=== PATIENT | male | born 2000 | race Caucasian/White ===

== ENCOUNTER 2022-09-18 16:45 | Inpatient (IN) | payer MEDICAID, OTHER ==
--- NOTE | 2022-09-18 20:39 | ED ---
General Adult HPI - General Chief complaint: Psychiatric Symptoms Stated complaint: Mental Health Time Seen by Provider: 09/18/22 20:12 Source: patient, family, RN notes reviewed Mode of arrival: ambulatory Limitations: no limitations - History of Present Illness Initial comments: 22-year-old male presents emergency Department with chief complaint of hearing voices that are not present. He states that this has been going on for around 6 months. He reports that he uses families that are criticizing him. He states that he has never been evaluated for this. He reports associated suicidal ideation that has been going on for the past 1-2 years. He denies intent or plan. Denies HI. He denies prior hospitalization for his mental health. He takes no daily medications. Denies fever, chills, chest pain, shortness of breath, urinary frequency, dysuria. Admits to marijuana use and occasional LSD use with the last time being about a month ago. - Related Data Home Medications Medication Instructions Recorded Confirmed No Known Home Medications 09/18/22 09/18/22 Allergies Allergy/AdvReac Type Severity Reaction Status Date / Time amoxicillin [From Amoxil] Allergy Rash/Hives Verified 09/18/22 20:32 Review of Systems ROS Statement: Those systems with pertinent positive or pertinent negative responses have been documented in the HPI. ROS Other: All systems not noted in ROS Statement are negative. Past Medical History Past Medical History: Asthma Past Surgical History: No Surgical Hx Reported Past Psychological History: Anxiety, Depression, PTSD Smoking Status: Current every day smoker, Vaper Past Alcohol Use History: None Reported Past Drug Use History: Marijuana General Exam Limitations: no limitations General appearance: alert, in no apparent distress, anxious, other (avoidant ) Head exam: Present: atraumatic, normocephalic, normal inspection Eye exam: Present: normal appearance ENT exam: Present: normal exam, mucous membranes moist Neck exam: Present: normal inspection. Absent: tenderness, meningismus, lymphadenopathy Respiratory exam: Present: normal lung sounds bilaterally. Absent: respiratory distress, wheezes, rales, rhonchi, stridor Cardiovascular Exam: Present: regular rate, normal rhythm, normal heart sounds. Absent: systolic murmur, diastolic murmur, rubs, gallop, clicks GI/Abdominal exam: Present: soft, normal bowel sounds. Absent: distended, tenderness, guarding, rebound, rigid Extremities exam: Present: normal inspection, full ROM, normal capillary refill. Absent: tenderness, pedal edema, joint swelling, calf tenderness Back exam: Present: normal inspection Neurological exam: Present: alert, oriented X3 Psychiatric exam: Present: flat affect, suicidal ideation Skin exam: Present: warm, dry, intact, normal color. Absent: rash Course Vital Signs 09/18/22 17:21 Temperature 98 F Pulse Rate 100 Respiratory 20 Rate Blood Pressure 142/85 O2 Sat by Pulse 96 Oximetry Medical Decision Making - Medical Decision Making Was pt. sent in by a medical professional or institution (, PA, HOST HOSTESS, urgent care, hospital, or longterm...) When possible be specific @ -No Did you speak to anyone other than the patient for history (EMS, parent, family, police, friend...)? What history was obtained from this source @ -No Did you review nursing and triage notes (agree or disagree)? Why? @ -I reviewed and agree with nursing and triage notes Were old charts reviewed (outside hosp., previous admission, EMS record, old EKG, old radiological studies, urgent care reports/EKG's, longterm records)? Report findings @ -No old charts were reviewed Differential Diagnosis (chest pain, altered mental status, abdominal pain women, abdominal pain men, vaginal bleeding, weakness, fever, dyspnea, syncope, headache, dizziness, GI bleed, back pain, seizure, CVA, palpatations, mental health, musculoskeletal)? @ -Differential Mental Health Depression, anxiety, bipolar, psychosis, schizophrenia, borderline personality, situational depression, adjustment disorder, behavioral disorder, brain tumor, malingering, substance abuse, encephalopathy, medication reaction, dementia, hypothyroidism, degenerative neurologic disorder, lupus.... This is not meant to be all-inclusive liste EKG interpreted by me (3pts min.). @ -None X-rays interpreted by me (1pt min.). @ -None done CT interpreted by me (1pt min.). @ -None done U/S interpreted by me (1pt. min.). @ -None done What testing was considered but not performed or refused? (CT, X-rays, U/S, labs)? Why? @ -None What meds were considered but not given or refused? Why? @ -None Did you discuss the management of the patient with other professionals (professionals i.e. , PA, HOST HOSTESS, lab, RT, psych nurse, social and political studies professor, scrapper, teacher, aoc operations intelligence officer, clinical case manager)? Give summary @ -No Was smoking cessation discussed for >3mins.? @ -No Was critical care preformed (if so, how long)? @ -No Were there social determinants of health that impacted care today? How? (Homelessness, low income, unemployed, alcoholism, drug addiction, transportation, low edu. Level, literacy, decrease access to med. care, correction, rehab)? @ -No Was there de-escalation of care discussed even if they declined (Discuss DNR or withdrawal of care, Hospice)? DNR status @ -No What co-morbidities impacted this encounter? (DM, HTN, Smoking, COPD, CAD, Cancer, CVA, ARF, Chemo, Hep., AIDS, mental health diagnosis, sleep apnea, morbid obesity)? @ -None Was patient admitted / discharged? Hospital course, mention meds given and route, prescriptions, significant lab abnormalities, going to OR and other pertinent info. @ -Admitted. Patient presented in the emergency department with chief complaint of auditory hallucinations, suicidal ideations. Patient brought himself into the emergency department willingly. Patient reports taking no medications for his mental health. He has never been evaluated for his mental health and never been admitted for this. He denies taking any pain medications. Patient was evaluated by emergency psychiatric services and inpatient admission was recommended. Undiagnosed new problem with uncertain prognosis? @ -No Drug Therapy requiring intensive monitoring for toxicity (Heparin, Nitro, Insulin, Cardizem)? @ -No Were any procedures done? @ -No Diagnosis/symptom? @ -Suicidal ideation Acute, or Chronic, or Acute on Chronic? @ -Acute Uncomplicated (without systemic symptoms) or Complicated (systemic symptoms)? @ -default Side effects of treatment? @ -No Exacerbation, Progression, or Severe Exacerbation? @ -No Poses a threat to life or bodily function? How? (Chest pain, [place], NH, pneumonia, PE, COPD, DKA, ARF, appy, cholecystitis, CVA, Diverticulitis, Homicidal, Suicidal, threat to staff... and all critical care pts) @ -Suicidal - Lab Data Lab Results 09/18/22 09/18/22 Range/Units 21:50 21:50 Urine Opiates Screen Not Detected (NotDetected) Ur Oxycodone Screen Not Detected (NotDetected) Urine Methadone Screen Not Detected (NotDetected) Ur Propoxyphene Screen Not Detected (NotDetected) Ur Barbiturates Screen Not Detected (NotDetected) U Tricyclic Antidepress Not Detected (NotDetected) Ur Phencyclidine Scrn Not Detected (NotDetected) Ur Amphetamines Screen Not Detected (NotDetected) U Methamphetamines Scrn Not Detected (NotDetected) U Benzodiazepines Scrn Not Detected (NotDetected) Urine Cocaine Screen Not Detected (NotDetected) U Marijuana (THC) Screen Detected H (NotDetected) Coronavirus (PCR) Not Detected (Not Detectd) Disposition Clinical Impression: Suicidal ideation, Hallucinations Disposition: ADMITTED IP TO THIS [facility] Condition: Stable Is patient prescribed a controlled substance at d/c from ED?: No Referrals: Nando Squires DO [Primary Care Provider] - 1-2 days
[2022-09-18 22:20] LABS: Amphetamine Screen,Urine Not Detected (NotDetected); Barbiturate Screen,Urine Not Detected (NotDetected); Benzodiazepines Screen,Urine Not Detected (NotDetected); Cocaine Screen,Urine Not Detected (NotDetected); Methadone Screen, Urine Not Detected (NotDetected); Opiate Screen,Urine Not Detected (NotDetected); Oxycodone Screen, Urine Not Detected (NotDetected); Phencyclidine Screen,Urine Not Detected (NotDetected); Tricyclic Antidepressant,Urine Not Detected (NotDetected); Urn Cannabinoid Scrn Detected (NotDetected)
[2022-09-18] MEDS ORDERED: MAGNESIUM HYDROXIDE 2,400 MG/30 ML CUP PO PRN (22:53)
[2022-09-18] MEDS ORDERED: ACETAMINOPHEN TAB 325 MG TAB PO PRN (22:53)
[2022-09-18] MEDS ORDERED: MAG HYDROX/AL HYDROX/SIMETH 30 ML CUP PO PRN (22:53)
[2022-09-18] MEDS ORDERED: hydrOXYzine pamoate 25 MG CAP PO PRN (22:57)
[2022-09-18] MEDS ORDERED: hydrOXYzine HCL 50 MG/ML 1 ML VIAL IM PRN (22:57)
[2022-09-18] MEDS ORDERED: OLANZapine 10 MG VIAL IM PRN (22:57)
[2022-09-18] MEDS ORDERED: OLANZapine 5 MG TAB PO PRN (22:57)
[2022-09-19 05:32] LABS: Appearance,Urine Clear (Clear); Bilirubin,Urine Negative (Negative); Blood,Urine Negative (Negative); Color,Urine Light Yellow; Glucose,Urine (UA) Negative (Negative); Ketones,Urine Negative (Negative); Leukocyte Esterase,Urine Negative (Negative); Nitrite,Urine Negative (Negative); Protein,Urine Negative (Negative); Specific Gravity,Urine 1.019 (1.001-1.035); Urobilinogen,Urine <2.0 mg/dL (<2.0)
[2022-09-19 09:06] LABS: Basophils # (A) 0.1 k/uL (0-0.2); Basophils % (A) 1 %; Eosinophils # (A) 0.1 k/uL (0-0.7); Eosinophils % (A) 2 %; HCT 51.7 % (39.0-53.0); HGB 17.5 gm/dL (13.0-17.5); Lymphocytes # (A) 2.9 k/uL (1.0-4.8); Lymphocytes % (A) 52 %; MCHC 33.8 g/dL (31.0-37.0); MCV 91.6 fL (80.0-100.0); Mean Platelet Volume 8.6; Monocytes # (A) 0.3 k/uL (0-1.0); Monocytes % (A) 5 %; Neutrophils % (A) 37 %; Platelet Count 204 k/uL (150-450); RBC 5.64 m/uL (4.30-5.90); RDW 12.3 % (11.5-15.5); WBC 5.5 k/uL (4.0-11.0)
[2022-09-19] MEDS: NICOTINE 14MG/24HR PATCH TRANSDERM SCH (09:20)
[2022-09-19 09:22] LABS: ALT 25 U/L (4-49); African American GFR (CKD) >90 (>60 ml/min/1.73 sqM); Albumin 5.5 g/dL (3.5-5.0); Anion Gap 15 mmol/L; Blood Urea Nitrogen 11 mg/dL (9-20); Calcium 10.1 mg/dL (8.4-10.2); Carbon Dioxide 21 mmol/L (22-30); Chloride 102 mmol/L (98-107); Glucose 92 mg/dL (74-99); Non-African American GFR(CKD) >90 (>60 ml/min/1.73 sqM); Sodium 138 mmol/L (137-145); Total Bilirubin 1.8 mg/dL (0.2-1.3); Total Protein 8.7 g/dL (6.3-8.2)
[2022-09-19 09:24] LABS: Potassium 4.7 mmol/L (3.5-5.1)
[2022-09-19 09:25] LABS: AST 45 U/L (17-59); Alkaline Phosphatase 65 U/L (38-126)
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
[2022-09-19] MEDS: ZIPRASIDONE 20 MG CAP PO SCH ×2 (10:25→21:22)
--- NOTE | 2022-09-19 10:34 | CT ---
EXAMINATION TYPE: CT brain wo con CT DLP: 995.5 mGycm, Automated exposure control for dose reduction was used. DATE OF EXAM: 09/19/2022 10:26 AM COMPARISON: None. Prior CT Brain from . CLINICAL INDICATION:Male, 22 years old with history of first episode psychosis/hallucinations, First episode psychosis/hallucinations TECHNIQUE: Brain: Multiple axial CT images of the brain were obtained without IV contrast. Coronal and sagittal reformats reviewed. FINDINGS: Brain: Extra-axial spaces: No abnormal extra-axial fluid collections. Incidental hailey cisterna magna. Ventricular system: Within normal limits Cerebral parenchyma: No acute intraparenchymal hemorrhage or mass effect. The leon-white junction is well differentiated. Cerebellum: Unremarkable. Mass effect: No evidence of midline shift. Intracranial vasculature: unremarkable Soft tissues: Normal. Calvarium/osseous structures: No depressed skull fracture. Paranasal sinuses and mastoid air cells: Clear Visualized orbits: Orbital contents are intact. IMPRESSION: No acute intracranial process.
[2022-09-19 12:16] VITALS: BMI 15.3
--- NOTE | 2022-09-19 17:00 | P.MDCNMH ---
History of Present Illness H&P Date: 09/19/22 This is a 22-year-old male who presented to the emergency department reporting hallucinations along with suicidal ideation for mental health evaluation. Patient was voluntarily admitted to [address] [place] [address] psychiatric unit. Labs reviewed and within normal limits. Patient was reporting palpitations in the ER that has resolved and patient also reported feeling slightly anxious when he was in the ER and will obtain EKG. On exam patient denies chest pain or shortness of breath, breath sounds are clear to auscultation and heart rate within normal limits. Patient denies nausea or vomiting and reports the tolerating diet. Patient is up and walking with a steady gait denies any headache, dizziness, lightheadedness. Patient does smoke "a lot" and have offered nicotine patch which GERD has on. Patient does not take any scheduled home medications and reports his primary care provider is Dr. Cassandra Squires with a past medical history of asthma although does not take any medications for this and reports has not seen his primary care provider in quite some time. Patient also reports he lives with his aunt and uncle and has significant stressors in his life that have been causing him to become increasingly anxious and more depressed. Patient reports to having suicidal ideations that have been ongoing over the last couple of years with no attempts and no plan at this time. Review Of Systems: Constitutional: No fever, no chills, no night sweats. No weight change. No weakness, fatigue or lethargy. No daytime sleepiness. EENT: No headache. No blurred vision or double vision, no loss of vision. No loss of Hearing, no ringing in the ears, no dizziness. No nasal drainage or congestion. No epistaxis. No sore throat. Lungs: No shortness of breath, cough, no sputum production. No wheezing. Cardiovascular: No chest pain, no lower extremity edema. No palpitations. No paroxysmal nocturnal dyspnea. No orthopnea. No lightheadedness or dizziness. No syncopal episodes. Abdominal: No abdominal pain. No nausea, vomiting. No diarrhea. No constipation. No bloody or tarry stools.. No loss of appetite. Genitourinary: No dysuria, increased frequency, urgency. No urinary retention. Musculoskeletal: No myalgias. No muscle weakness, no gait dysfunction, no frequent falls. No back pain. No neck pain. Integumentary: No wounds, no lesions. No rash or pruritus. No unusual bruising. No change in hair or nails. Neurologic: No aphasia. No facial droop. No change in mentation. No head injury. No headache. No paralysis. No paresthesia. Psychiatric: No depression. No anxiety. No mood swings. Endocrine: No abnormal blood sugars. No weight change. No excessive sweating or thirst. No cold intolerance. PHYSICAL EXAMINATION: GENERAL: The patient is alert and oriented x4, Well developed, thin built, cachectic appearing, pale HEENT: Pupils are round and equally reacting to light. EOMI. no scleral icterus. No conjunctival pallor. Normocephalic, atraumatic. No pharyngeal erythema. No thyromegaly. CARDIOVASCULAR: S1 and S2 muffled PULMONARY: diminished breath sounds bilaterally with no wheezing or rhonchi noted. ABDOMEN: soft. Nontender on exam. obese. non-distended, normoactive bowel sounds. No palpable organomegaly. MUSCULOSKELETAL: No joint swelling or deformity. EXTREMITIES: No cyanosis, clubbing, or pedal edema. NEUROLOGICAL: Gross neurological examination did not reveal any focal deficits. Diffuse weakness SKIN: No rashes. Assessment: Auditory hallucinations with suicidal ideations with acute psychosis and paranoia History of asthma, not an exacerbation and does not take any medications for this History of anxiety with depression Continued ongoing nicotine dependence, patient reports heavily addicted to nicotine including vaping THC use Severe protein calorie malnutrition with a BMI of 15.4 Full code Plan: patient was voluntarily admitted to the psychiatric unit for further psychiatric evaluation for auditory hallucinations with paranoia and suicidal ideations Patient reports he lives with his aunt and uncle and has had significant PTSD and depression with psychiatric issues for most of his life Encouraged patient to attend group therapy sessions along with complaints of medications and psychiatric evaluations. Patient reports to being heavily addicted to nicotine and smokes along with vapes as well as THC use. Patient admits to LSD and mushrooms and reports was approximately one month ago of last use On exam patient reports no chest pain or shortness of breath. Patient reports he did have an episode of palpitations on admission to the ED and will order EKG Labs reviewed and within normal limits patient reports he follows with Dr. Squires in the outpatient setting although also reports he has not seen her in quite some time thank you kindly for this consultation. The impression and plan of care has been dictated by Rafaela Rome, nurse practitioner as directed. Dr. Michel MD I have performed a history and examination and MDM of this patient, discussed the same with the dictator, and agree with the dictator's assessment and plan as written ,documented as a scribe. Based on total visit time, I have performed more than 50% of the visit. Any additional findings or plans will be noted. Past Medical History Past Medical History: Asthma History of Any Multi-Drug Resistant Organisms: None Reported Past Surgical History: No Surgical Hx Reported Past Psychological History: Anxiety, Depression, PTSD Smoking Status: Current every day smoker, Vaper Past Alcohol Use History: None Reported Past Drug Use History: Marijuana Medications and Allergies Home Medications Medication Instructions Recorded Confirmed Type No Known Home Medications 09/18/22 09/18/22 History Allergies Allergy/AdvReac Type Severity Reaction Status Date / Time amoxicillin [From Amoxil] Allergy Rash/Hives Verified 09/18/22 20:32 Physical Exam Vitals: Vital Signs Temp Pulse Pulse Resp BP BP Pulse Ox 09/18/22 22:31 97.4 F L 66 18 123/87 100 09/18/22 17:21 98 F 100 20 142/85 96 Intake and Output 09/18/22 09/19/22 09/19/22 22:59 06:59 14:59 Other: Weight 55.8 kg Cranial Nerve Examination - Cranial Nerves Cranial Nerve I- Olfactory: Intact Cranial Nerve II- Optic: Intact Cranial Nerve III- Oculomotor: Intact Cranial Nerve IV- Trochlear: Intact Cranial Nerve V- Trigeminal: Intact Cranial Nerve - Abducens: Intact Cranial Nerve VII- Facial: Intact Cranial Nerve VIII- Auditory: Intact Cranial Nerve IX- Glossopharyngeal: Intact Cranial Nerve X- Vagus: Intact Cranial Nerve XI- Accessory: Intact Cranial Nerve XII- Hypoglossal: Intact Results CBC & Chem 7: 09/19/22 08:27 09/19/22 08:27 Labs: Abnormal Lab Results - Last 24 Hours (Table) 09/18/22 Range/Units 21:50 U Marijuana (THC) Screen Detected H (NotDetected) Assessment and Plan Time with Patient: Less than 30
[2022-09-19] MEDS: MELATONIN 3 MG TABLET PO SCH (21:22)
[2022-09-20] MEDS: ZIPRASIDONE 20 MG CAP PO SCH (08:59)
[2022-09-20] MEDS: NICOTINE 14MG/24HR PATCH TRANSDERM SCH (08:59)
--- NOTE | 2022-09-20 10:31 | P.PN ---
Progress Note - Text Progress Note Date: 09/20/22 Interval History: Patient was seen laying in his bed today and was directable and agreeable to s peak with play writer in the office. Patient continues to have poor eye contact, states that he is doing a bit better overall. He claims that the auditory hallucinations have "calmed down a bit". He states that he is still hearing them however they are less negative in nature and less frequent. He states that his paranoia is also improving. He did appear to have a mildly brighter affect today. Claims that his mood and anxiety are also mildly improving. He states that he is able sleep fairly with melatonin at nighttime and wants to remain on the same dose. States that he is not interested in going to many groups at this time. He continues to state that some of the visual hallucinations are still present. he continues to be fairly concrete however appropriate. At this time patient denies any suicidal or homical ideations, intent or plan. He denies any paranoia or delusions. Patient denies any side effects from the medications and has been compliant with meds. Mental Status Exam: General Appearance: Patient appears to be thin, poor eye contact looking at the ground, mildly disheveled appearance, stated age is alert, directable, and attempts to cooperate. Behavior: Patient is seated without any agitated behavior. Looking at the ground, poor eye contact. Speech: Patient's speech is fluent and nonpressured. [place], monotone, improving mildly Mood/Affect: Patient reports their mood is "ok", affect is congruent and constricted. Suicidality/Homicidality: Patient denies having any homicidal ideation intent or plan. Denies any current suicidal ideations intent or plan Perceptions: Patient admits to both AH and , AH are improving Though content/process: not endorsing paranoia, no active delusions, goal oriented. concrete. Memory and concentration: AOX3, grossly intact for the purposes of this session Judgment and insight: poor, improving mildly IMPRESSIONS: Psychosis unspecified, rule out secondary to hallucinogen abuse and cannabis use vs schizophrenia hallucinogen abuse cannabis use disorder nicotine dependence PLAN: -Patient is admitted under voluntary status to [facility] for stabilization of psychiatric symptoms and safety. Patient has signed adult voluntary form and medication consent and is placed in patient's chart. -Medications : increase geodon 40 mg bid for psychosis/hallucinations, melatonin 6 mg qhs for sleep. -CT brain on 09/19 for first episode psychosis - no acute findings or changes -EKG ordered, still pending, need to review qtc interval -vistaril and Zyprexa PRN for agitation/aggression -NRT - nicotine patch -SW on board for discharge planning. Encourage patient to participate in groups to work on coping skills.
[2022-09-20] MEDS: MELATONIN 3 MG TABLET PO SCH (21:17)
[2022-09-20] MEDS: ZIPRASIDONE 40 MG CAP PO SCH (21:17)
[2022-09-21] MEDS: ZIPRASIDONE 40 MG CAP PO SCH (09:33)
[2022-09-21] MEDS: NICOTINE 14MG/24HR PATCH TRANSDERM SCH ×2 (11:18→12:40)
--- NOTE | 2022-09-21 11:54 | P.PN ---
Subjective Progress Note Date: 09/21/22 Principal diagnosis: IMPRESSIONS: Psychosis unspecified, rule out secondary to hallucinogen abuse and cannabis use vs schizophrenia hallucinogen abuse cannabis use disorder nicotine dependence Interval History: I saw the patient pacing in the [place] but when he went to find him he was lying down Patient was seen laying in his bed today and was directable and agreeable to speak with sports book writer in the office. Subjective the patient says that without medication he is constantly hearing voices which are always negative. They read the book he is reading along with him and tell him in stupid to read that book or that his ideas are stupid. He feels watched and controlled. He feels that the medication Geodon is already helping some. He is on 40 mg twice a day but he says it makes him quite sleepy during the day. He says that he lost over 20 pounds in the last few months and realizes that is unhealthy. Mental Status Exam: General Appearance: Patient appears to be thin, poor eye contact looking at the ground, mildly disheveled appearance, stated age is alert, directable, and attempts to cooperate. Behavior: Patient is seated without any agitated behavior. He appears to have much better eye contact and interaction than described in the chart. Speech: Patient's speech is fluent and nonpressured. [place], monotone, Mood/Affect: Patient reports their mood is "ok", affect is congruent and constricted. Suicidality/Homicidality: Patient denies having any homicidal ideation intent or plan. Denies any current suicidal ideations intent or plan Perceptions: Patient admits to both and , AH are improving Though content/process: not endorsing paranoia, no active delusions, goal oriented. concrete. Memory and concentration: AOX3, grossly intact for the purposes of this session Judgment and insight: poor, improving mildly. PLAN: -Patient is admitted under voluntary status to [facility] for stabilization of psychiatric symptoms and safety. Patient has signed adult voluntary form and medication consent and is placed in patient's chart. -Medications : increase geodon 60 mg with supper and 60 mg at bed with 450 jb for psychosis/hallucinations, melatonin 6 mg qhs for sleep. -CT brain on 09/19 for first episode psychosis - no acute findings or changes -EKG ordered, still pending, need to review qtc interval -vistaril and Zyprexa PRN for agitation/aggression -NRT - nicotine patch -SW on board for discharge planning. Encourage patient to participate in groups to work on coping skills. Objective - Vital Signs Vital signs: Vital Signs Temp 98.0 F 09/20/22 10:28 Pulse 127 H 09/20/22 10:28 Resp 100 H 09/20/22 10:28 BP 117/64 09/20/22 10:28 Pulse Ox 100 09/18/22 22:31 FiO2 - Labs CBC & Chem 7: 09/19/22 08:27 09/19/22 08:27
[2022-09-21] MEDS: MELATONIN 3 MG TABLET PO SCH (20:38)
[2022-09-21] MEDS: ZIPRASIDONE 60 MG CAP PO SCH (20:38)
[2022-09-22] MEDS: NICOTINE 14MG/24HR PATCH TRANSDERM SCH (08:34)
--- NOTE | 2022-09-22 09:29 | P.PN ---
Subjective Progress Note Date: 09/22/22 Principal diagnosis: IMPRESSIONS: Psychosis unspecified, rule out secondary to hallucinogen abuse and cannabis use vs schizophrenia hallucinogen abuse cannabis use disorder nicotine dependence Interval History: I saw the patient r in the office. Subjective: The patient said that he tolerated the increase in Geodon. I reminded him that he must have 450 jb of food with second dose for it to absorb. He says that he is eating better and has been going to groups and payin g attention and getting benefit from that Mental Status Exam: General Appearance: Patient appears to be thin, improved eye contact, improve self-care, stated age is alert, directable, and cooperative. Behavior: Patient is seated without any agitated behavior. He has good interaction with me.. Speech: Patient's speech is fluent and nonpressured. [place], and improved prosody Mood/Affect: Patient reports their mood is "ok", affect is congruent and constricted. Suicidality/Homicidality: Patient denies having any homicidal ideation intent or plan. Denies any current suicidal ideations intent or plan Perceptions: Patient admits to both AH and , AH are improving Though content/process: not endorsing paranoia, no active delusions, goal oriented. concrete. Memory and concentration: AOX3, he paid good attention Judgment and insight: poor, improving mildly. PLAN: No change in medication -Patient is admitted under voluntary status to [facility] for stabilization of psychiatric symptoms and safety. Patient has signed adult voluntary form and medication consent and is placed in patient's chart. -Medications : increase geodon 60 mg with supper and 60 mg at bed with 450 jb for psychosis/hallucinations, melatonin 6 mg qhs for sleep. -CT brain on 09/19 for first episode psychosis - no acute findings or changes -EKG ordered, still pending, need to review qtc interval -vistaril and Zyprexa PRN for agitation/aggression -NRT - nicotine patch - on board for discharge planning. Encourage patient to participate in groups to work on coping skills. Objective - Vital Signs Vital signs: Vital Signs Temp 97.4 F L 09/22/22 08:33 Pulse 92 09/22/22 08:33 Resp 16 09/22/22 08:33 BP 144/88 09/22/22 08:33 Pulse Ox 100 09/18/22 22:31 FiO2 - Labs CBC & Chem 7: 09/19/22 08:27 09/19/22 08:27
[2022-09-22] MEDS: ZIPRASIDONE 60 MG CAP PO SCH ×3 (17:59→20:28)
[2022-09-22] MEDS: MELATONIN 3 MG TABLET PO SCH (20:22)
[2022-09-23] MEDS: NICOTINE 14MG/24HR PATCH TRANSDERM SCH (07:38)
--- NOTE | 2022-09-23 13:22 | P.PN ---
Progress Note - Text Progress Note Date: 09/23/22 Interval History: Patient was seen taking part in activity group this afternoon after lunch. He appears to be an [employer] today, mildly improving affect and attention span. He states that the medications have been helping however did state that he had an episode of "feeling paranoid" and also hearing voices last night. He states that he believed that other people are talking about him. He claimed that after that he has been doing fairly well. States that his depression and anxiety but improving. States that he slept fairly with melatonin once remain on the same dose. He has been having good appetite, has been going to groups. He continues to state that some of the visual hallucinations are still present however they are improving and non distressing today. he continues to be fairly concrete however appropriate. At this time patient denies any suicidal or homical ideations, intent or plan. He denies any paranoia or delusions. Patient denies any side effects from the medications and has been compliant with meds. Mental Status Exam: General Appearance: Patient appears to be thin, poor eye contact looking at the ground, improving appearance, stated age is alert, directable, and attempts to cooperate. Behavior: Patient is seated without any agitated behavior. Looking at the ground, improving eye contact. Speech: Patient's speech is fluent and nonpressured. [place], improving mildly Mood/Affect: Patient reports their mood is "good", affect is congruent Suicidality/Homicidality: Patient denies having any homicidal ideation intent or plan. Denies any current suicidal ideations intent or plan Perceptions: Patient admits to both and , AH are improving Though content/process: not endorsing paranoia, no active delusions, goal oriented. concrete. Memory and concentration: AOX3, grossly intact for the purposes of this session Judgment and insight: improving mildly IMPRESSIONS: Psychosis unspecified, rule out secondary to hallucinogen abuse and cannabis use vs schizophrenia hallucinogen abuse cannabis use disorder nicotine dependence PLAN: -Patient is admitted under voluntary status to [facility] for stabilization of psychiatric symptoms and safety. Patient has signed adult voluntary form and medication consent and is placed in patient's chart. -Medications : continue geodon 60 mg bid for psychosis/hallucinations, melatonin 6 mg qhs for sleep. -CT brain on 09/19 for first episode psychosis - no acute findings or changes -EKG reviewed -vistaril and Zyprexa PRN for agitation/aggression -NRT - nicotine patch -SW on board for discharge planning. Encourage patient to participate in groups to work on coping skills. likely discharge in 1-2 days if patients symptoms improve.
[2022-09-23] MEDS: ZIPRASIDONE 60 MG CAP PO SCH ×2 (17:42→20:41)
[2022-09-23] MEDS: MELATONIN 3 MG TABLET PO SCH (20:41)
[2022-09-24 07:07] VITALS: BP 130/77; PULSE 110; RESP 18; TEMP 97.5
[2022-09-24] MEDS: NICOTINE 14MG/24HR PATCH TRANSDERM SCH (08:39)
--- NOTE | 2022-09-24 10:29 | P.DS ---
Providers Date of admission: 09/18/22 22:20 Expected date of discharge: 09/24/22 Attending physician: Wilmer Garcia MD Consults: 09/18/22 22:53 Consult Physician Routine Consulting Provider: [facility] Consult Reason/Comments: H&P Do you want consulting provider notified?: Yes, Notify in am Primary care physician: Nando Squires - Discharge Diagnosis(es) (1) Unspecified psychosis Current Visit: Yes Status: Acute Priority: High (2) Hallucinogen abuse Current Visit: Yes Status: Acute Priority: High (3) Cannabis use disorder Current Visit: Yes Status: Acute Priority: Medium (4) Nicotine dependence Current Visit: Yes Status: Acute Priority: Low Hospital Course: Admission HPI: Admission note was completed by greeting card writer "Patient is a 22-year-old male, currently lives with his aunt and uncle in house, he is unemployed at this time since July 2022, used to work in a factory. Patient presented to the hospital yesterday brought in by his mother. The patient apparently has been having auditory hallucinations according to ER report for the past 6 months or so, also was reporting that is usually believes that this family was criticizing him. He was also having suicidal thoughts for the past 1-2 years as well. Patient's urine drug she was positive for THC, urine analysis is negative. Patient was admitted voluntarily to the mental health unit. Patient was seen wandering the hallways and agreeable strict greeting card writer in the office today. Patient had poor eye contact, fairly concrete and looking at the ground most of the conversation. He states that he has been hearing "harsh voices" saying "negative things to me". He claims that he felt that they were yelling at him and he states that he was also having conversations with them as well. Claims that they were telling him to do "very weird things" and also telling him to harm himself. He states that he even heard the neighbors voice talking to him when he knows that they weren't. Claims that they are mainly present when he is alone in her room. States that he is also been having visual hallucinations of different lights and color patterns and claims that this has been going on for over a year. He claims that he also has been not able to function at work and has left his job at the factory and claims that he is having financial stressors. States that he is also fairly paranoid and claims that "people want to jump me". He states that he is also getting special messages from the news on the TV and believes that it is [place]лен[place] just for him. He claims that he is struggling with suicidal thoughts however no intent or plan, denying any homicidal ideations at this time. Patient denies any flight of ideas racing thoughts and increased in goal directed behavior. Patient states that he has had a fair appetite, his sleep has been on and off. Patient admits to using LSD recreationally, a lot" and states that it's been about 8 or 9 times the past year. Claims that he is also been using recreationally psilocybin mushrooms and also smoking marijuana heavily about an eighth of an ounce a day, claims to smoke cigarettes daily as well." Hospital course: Upon admission to the unit patient was directable and agreeable to commence treatment and signed adult voluntary form. Patient was initially isolative however with time and treatment he got along well with other patients on the unit and followed unit protocol. Patient was compliant with the medications and denied any side effects throughout hospital course. Patient was started on Geodon and increased her dose of 60 mg twice a day for psychosis, melatonin 6 mg daily at bedtime for sleep, Vistaril when necessary for anxiety. Patient spoke of his stressors and engaged in therapy both group and individual. Patient was also seen by medical team for history and physical exam. Patient had a computed tomography scan of his brain which showed no acute intracranial process, patient was also given a EKG due to starting geodon. Throughout the course of the hospitalization patient gradually improved with regards to mood, anxiety, psychosis, hallucinations, sleep and became more future oriented with improved insight and judgment. On the day of discharge patient denied any suicidal or homicidal ideations intent or plan denied any auditory or visual hallucinations. Patient endorsed wanting to live for his health and family. The patient denied any access to guns or weapons. Patient denied any paranoia and did not endorse any delusions. Patient does have a significant history of substance abuse and was counseled on abstaining from all substances including alcohol and marijuana. Patient was offered however declined inpatient substance-abuse rehab. Patient states that he would prefer to do outpatient counseling for substance abuse treatment instead. Patient was also counseled on the medications and need for regular compliance and was encouraged to follow-up with their outpatient appointment for mental health and also for primary care. Prior to discharge a family meeting will be arranged by licensed clinical social worker to answer any questions and ensure safety upon discharge. Mental status exam: General Appearance: Patient appears to be a tall, thin, stated age is alert, pleasant, and cooperative. Patient is in no acute distress and has improved hygiene and grooming Behavior: Patient is calmly seated without any agitated behavior. Speech: Patient's speech is fluent and nonpressured. Mood/Affect: Patient reports their mood is "better", affect is congruent and euthymic. Suicidality/Homicidality: Patient denies having any suicidal or homicidal ideation intent or plan. Perceptions: Patient denies any auditory or visual hallucinations. Though content/process: There is no evidence of any delusional thought content and thought process is linear and goal-directed. more future oriented Memory and concentration: AOX3, grossly intact for the purposes of this session. Can spell "WORLD" backwards correctly. Judgment and insight: improved with guarded prognosis Impression: Psychosis unspecified, rule out secondary to hallucinogen abuse and cannabis use versus schizophrenia. Hallucinogen abuse Cannabis use disorder Nicotine dependence Plan: -Continue with discharge today as patient has improved and stabilized psychiatrically and is not currently an imminent threat to himself and/or others. Patient will remain at chronically elevated risk for harm to self and/or others due to his polysubstance abuse. -Continue medications: Geodon 60 mg twice a day for psychosis, melatonin 6 mg daily at bedtime for sleep, Vistaril 50 mg daily when necessary for anxiety. -Patient was counseled on the need for medication compliance and appropriate follow-up at mental health and also primary care for medical issues. Patient verbalized understanding and agreed. -Social work to arrange for and conduct family meeting to ensure safety upon discharge and answer any questions/concerns. Social work also to arrange for patients follow up appointments for psychiatric care along with follow up with primary care provider. -Patient counseled on abstaining from recreational drugs and marijuana and alcohol. Was informed/educated on the adverse effects on their physical and mental health. Patient verbally agreed and understood. -Patient was instructed to return to the hospital or seek immediate medical care if their psychiatric or medical symptoms do worsen or reoccur. Abnormal Labs 09/18/22 09/19/22 21:50 08: Carbon Dioxide 21 L Total Bilirubin 1.8 H Total Protein 8.7 H Albumin 5.5 H U Marijuana (THC) Screen Detected H Allergies Allergy/AdvReac Type Severity Reaction Status Date / Time amoxicillin [From Amoxil] Allergy Rash/Hives Verified 09/18/22 20:32 Laboratory Results WBC 5.5 k/uL (4.0-11.0) 09/19/22 08:27 RBC 5.64 m/uL (4.30-5.90) 09/19/22 08:27 Hgb 17.5 gm/dL (13.0-17.5) 09/19/22 08:27 Hct 51.7 % (39.0-53.0) 09/19/22 08:27 MCV 91.6 fL (80.0-100.0) 09/19/22 08:27 MCH 31.0 pg (25.0-35.0) 09/19/22 08: MCHC 33.8 g/dL (31.0-37.0) 09/19/22 08:27 RDW 12.3 % (11.5-15.5) 09/19/22 08:27 Plt Count 204 k/uL (150-450) 09/19/22 08:27 MPV 8.6 09/19/22 08:27 Neutrophils % 37 % 09/19/22 08:27 Lymphocytes % 52 % 09/19/22 08:27 Monocytes % 5 % 09/19/22 08:27 Eosinophils % 2 % 09/19/22 08: Basophils % 1 % 09/19/22 08:27 Neutrophils # 2.0 k/uL (1.3-7.7) 09/19/22 08:27 Lymphocytes # 2.9 k/uL (1.0-4.8) 09/19/22 08:27 Monocytes # 0.3 k/uL (0-1.0) 09/19/22 08:27 Eosinophils # 0.1 k/uL (0-0.7) 09/19/22 08:27 Basophils # 0.1 k/uL (0-0.2) 09/19/22 08:27 Sodium 138 mmol/L (137-145) 09/19/22 08:27 Potassium 4.7 mmol/L (3.5-5.1) 09/19/22 08:27 Chloride 102 mmol/L (98-107) 09/19/22 08:27 Carbon Dioxide 21 mmol/L (22-30) L 09/19/22 08:27 Anion Gap 15 mmol/L 09/19/22 08:27 BUN 11 mg/dL (9-20) 09/19/22 08:27 Creatinine 0.75 mg/dL (0.66-1.25) 09/19/22 08:27 Est GFR (CKD-EPI)AfAm >90 (>60 ml/min/1.73 sqM) 09/19/22 08:27 Est GFR (CKD-EPI)NonAf >90 (>60 ml/min/1.73 sqM) 09/19/22 08:27 Glucose 92 mg/dL (74-99) 09/19/22 08:[address] Glu mg/dL 111 mg/dL 09/19/22 08:27 Hemoglobin A1c 5.5 % (<=6.0) 09/19/22 08:27 Calcium 10.1 mg/dL (8.4-10.2) 09/19/22 08:27 Total Bilirubin 1.8 mg/dL (0.2-1.3) H 09/19/22 08:27 AST 45 U/L (17-59) 09/19/22 08:27 ALT 25 U/L (4-49) 09/19/22 08:27 Alkaline Phosphatase 65 U/L (38-126) 09/19/22 08:27 Total Protein 8.7 g/dL (6.3-8.2) H 09/19/22 08:27 Albumin 5.5 g/dL (3.5-5.0) H 09/19/22 08:27 TSH 3.010 mIU/L (0.465-4.680) 09/19/22 08:27 Urine Color Light Yellow 09/18/22 21:50 Urine Appearance Clear (Clear) 09/18/22 21:50 Urine pH 7.0 (5.0-8.0) 09/18/22 21:50 Ur Specific [place] 1.019 (1.001-1.035) 09/18/22 21:50 Urine Protein Negative (Negative) 09/18/22 21:50 Urine Glucose (UA) Negative (Negative) 09/18/22 21:50 Urine Ketones Negative (Negative) 09/18/22 21:50 Urine Blood Negative (Negative) 09/18/22 21:50 Urine Nitrite Negative (Negative) 09/18/22 21:50 Urine Bilirubin Negative (Negative) 09/18/22 21:50 Urine Urobilinogen <2.0 mg/dL (<2.0) 09/18/22 21:50 Ur Leukocyte Esterase Negative (Negative) 09/18/22 21:50 Urine Opiates Screen Not Detected (NotDetected) 09/18/22 21:50 Ur Oxycodone Screen Not Detected (NotDetected) 09/18/22 21:50 Urine Methadone Screen Not Detected (NotDetected) 09/18/22 21:50 Ur Propoxyphene Screen Not Detected (NotDetected) 09/18/22 21:50 Ur Barbiturates Screen Not Detected (NotDetected) 09/18/22 21:50 U Tricyclic Antidepress Not Detected (NotDetected) 09/18/22 21:50 Ur Phencyclidine Scrn Not Detected (NotDetected) 09/18/22 21:50 Ur Amphetamines Screen Not Detected (NotDetected) 09/18/22 21:50 U Methamphetamines Scrn Not Detected (NotDetected) 09/18/22 21:50 U Benzodiazepines Scrn Not Detected (NotDetected) 09/18/22 21:50 Urine Cocaine Screen Not Detected (NotDetected) 09/18/22 21:50 U Marijuana (THC) Screen Detected (NotDetected) H 09/18/22 21:50 Coronavirus (PCR) Not Detected (Not Detectd) 09/18/22 21:50 Vital Signs Temp 97.5 F L 09/24/22 06:00 Pulse 110 H 09/24/22 06:00 Resp 18 09/24/22 06:00 BP 130/77 09/24/22 06:00 Pulse Ox 98 09/24/22 06:00 FiO2 Patient Condition at Discharge: Stable Plan - Discharge Summary Discharge Rx Participant: Yes New Discharge Prescriptions: New Docusate [Colace] 100 mg PO DAILY PRN 30 Days #30 capsule PRN Reason: Constipation Ziprasidone [Geodon] 60 mg PO 1730,2100 30 Days #60 cap Nicotine 14Mg/24Hr Patch [Habitrol] 1 patch TRANSDERM DAILY 14 Days #14 patch Melatonin 6 mg PO HS 30 Days #60 tab hydrOXYzine pamoate [Vistaril] 50 mg PO DAILY PRN 30 Days #60 cap PRN Reason: Anxiety Discharge Medication List Docusate [Colace] 100 mg PO DAILY PRN 30 Days #30 capsule 09/24/22 [Rx] Melatonin 6 mg PO HS 30 Days #60 tab 09/24/22 [Rx] Nicotine 14Mg/24Hr Patch [Habitrol] 1 patch TRANSDERM DAILY 14 Days #14 patch 09/24/22 [Rx] Ziprasidone [Geodon] 60 mg PO 1729,2099 30 Days #60 cap 09/24/22 [Rx] hydrOXYzine pamoate [Vistaril] 50 mg PO DAILY PRN 30 Days #60 cap 09/24/22 [Rx] Follow up Appointment(s)/Referral(s): Nando Squires DO [Primary Care Provider] - 1-2 days Activity/Diet/Wound Care/Special Instructions: Avoid the use of street drugs and alcohol. Take all medications as prescribed. When you are in need of refills on your medications, please contact your medical provider and/or outpatient psychiatrist/provider to have this done. Please go to your scheduled outpatient appointment for aftercare treatment. If symptoms return or become worse, call the crisis line at and/or go to the nearest emergency room for evaluation. National Suicide Hotline 988. Discharge Disposition: HOME SELF-CARE
== END 2022-09-24 15:31 | disposition home or self-care (01) | DRG 751 ==
LOC: EC 16:45 → 3MHU 22:20
PROVIDERS: ADMIT Psychiatry & Neurology Psychiatry; ATTEND Psychiatry & Neurology Psychiatry
DX: F28 Other psychotic disorder not due to a substance or known physiological condition (principal); F43.10 Post-traumatic stress disorder, unspecified; R45.851 Suicidal ideations; F17.200 Nicotine dependence, unspecified, uncomplicated; F12.10 Cannabis abuse, uncomplicated; F41.9 Anxiety disorder, unspecified; F32.A Depression, unspecified; F16.10 Hallucinogen abuse, uncomplicated; Z20.822 Contact with and (suspected) exposure to COVID-19; Z81.8 Family history of other mental and behavioral disorders; Z88.0 Allergy status to penicillin; Z56.0 Unemployment, unspecified
CPT/HCPCS: 70450; 80053; 80306; 81003; 82075; 83036; 84443; 85025; 87635; 93005; 99285

== ENCOUNTER 2023-05-02 19:19 | Emergency (ER) | payer OTHER ==
[2023-05-02] MEDS: LIDOCAINE 1% INJ 10MG/ML (20 ML MDV) SQ ONE (19:50)
[2023-05-02 19:54] VITALS: RESP 18; TEMP 98.5
--- NOTE | 2023-05-02 21:30 | ED ---
Skin/Abscess/FB HPI - General Chief complaint: Skin/Abscess/Foreign Body Stated complaint: spider bite Time Seen by Provider: 05/02/23 19:32 Source: patient Mode of arrival: ambulatory Limitations: no limitations - History of Present Illness Initial comments: 23-year-old male presenting with chief complaint of painful bump to the left thigh. States that about 4 days ago he had what he thought was a bug bite. When he woke up in the morning there was a small painless bump that appeared to have 2 fang tolbert in the center with no other symptoms. Since then there has been increasing redness and swelling. Today he noticed a large amount of swelling and what seemed to be some drainage. He has also had increasing tenderness. No fevers. He has full range of motion of the extremities. No numbness or tingling. - Related Data Previous Rx's Medication Instructions Recorded Docusate [Colace] 100 mg PO DAILY PRN 30 Days #30 09/24/22 capsule Melatonin 6 mg PO HS 30 Days #60 tab 09/24/22 Nicotine 14Mg/24Hr Patch [Habitrol] 1 patch TRANSDERM DAILY 14 Days 09/24/22 #14 patch Ziprasidone [Geodon] 60 mg PO 1730,2100 30 Days #60 cap 09/24/22 hydrOXYzine pamoate [Vistaril] 50 mg PO DAILY PRN 30 Days #60 cap 09/24/22 Cephalexin [Keflex] 500 mg PO Q6HR 7 Days #28 cap 05/02/23 Sulfamethox-Tmp 800-160Mg [Bactrim 1 tab PO Q12HR 7 Days #14 tab 05/02/23 DS 800-160 mg] Allergies Allergy/AdvReac Type Severity Reaction Status Date / Time amoxicillin [From Amoxil] Allergy Rash/Hives Verified 05/02/23 19:25 Review of Systems ROS Statement: Those systems with pertinent positive or pertinent negative responses have been documented in the HPI. ROS Other: All systems not noted in ROS Statement are negative. Past Medical History Past Medical History: Asthma History of Any Multi-Drug Resistant Organisms: None Reported Past Surgical History: No Surgical Hx Reported Past Psychological History: Anxiety, Depression, PTSD Smoking Status: Current every day smoker, Vaper Past Alcohol Use History: None Reported Past Drug Use History: Marijuana General Exam Limitations: no limitations General appearance: alert, in no apparent distress Head exam: Present: atraumatic, normocephalic Eye exam: Present: normal appearance Neck exam: Present: normal inspection Respiratory exam: Absent: respiratory distress Neurological exam: Present: alert, oriented X3 Psychiatric exam: Present: normal affect, normal mood Expanded Type of lesion: Present: abscess (Left thigh) Course Vital Signs 05/02/23 19:23 Temperature 98.5 F Pulse Rate 102 H Respiratory 18 Rate Blood Pressure 131/93 O2 Sat by Pulse 96 Oximetry Procedures - Incision & Drainage Consent Obtained: verbal consent Site: lower extremity (Left thigh) Size (cm): 2 (Diameter) Scalpel Used: #11 I&D Drainage Obtained: Pus, Blood Complications: pain Patient Tolerated Procedure: well Medical Decision Making - Medical Decision Making Was pt. sent in by a medical professional or institution ([facility], [employer], urgent care, hospital, or custodial...) When possible be specific @ -No Did you speak to anyone other than the patient for history (EMS, parent, family, police, friend...)? What history was obtained from this source @ -No Did you review nursing and triage notes (agree or disagree)? Why? @ -I reviewed and agree with nursing and triage notes Were old charts reviewed (outside hosp., previous admission, EMS record, old EKG, old radiological studies, urgent care reports/EKG's, custodial records)? Report findings @ -No old charts were reviewed Differential Diagnosis (chest pain, altered mental status, abdominal pain women, abdominal pain men, vaginal bleeding, weakness, fever, dyspnea, syncope, headache, dizziness, GI bleed, back pain, seizure, CVA, palpatations, mental health, musculoskeletal)? @ -Differential includes abscess, cellulitis, allergic reaction, this is not an all-inclusive list EKG interpreted by me (3pts min.). @ -As above X-rays interpreted by me (1pt min.). @ -None done CT interpreted by me (1pt min.). @ -None done U/S interpreted by me (1pt. min.). @ -None done What testing was considered but not performed or refused? (CT, X-rays, U/S, labs)? Why? @ -None What meds were considered but not given or refused? Why? @ -None Did you discuss the management of the patient with other professionals (professionals i.e. , PA, J[employer], lab, RT, psych nurse, social service director, retail worker, teacher, commercial account officer, case consultant)? Give summary @ -No Was smoking cessation discussed for >3mins.? @ -No Was critical care preformed (if so, how long)? @ -No Were there social determinants of health that impacted care today? How? (Ho melessness, low income, unemployed, alcoholism, drug addiction, transportation, low edu. Level, literacy, decrease access to med. care, intermediate, rehab)? @ -No Was there de-escalation of care discussed even if they declined (Discuss DNR or withdrawal of care, Hospice)? DNR status @ -No What co-morbidities impacted this encounter? (DM, HTN, Smoking, COPD, CAD, Cancer, CVA, ARF, Chemo, Hep., AIDS, mental health diagnosis, sleep apnea, morbid obesity)? @ -None Was patient admitted / discharged? Hospital course, mention meds given and route, prescriptions, significant lab abnormalities, going to OR and other pertinent info. @ -23-year-old male present with chief complaint of painful bump to the left thigh. On exam he appears to have an abscess that is about 2 to 3 cm in diameter. While preparing my supplies the patient went to the bathroom and when he returned he states that the abscess was starting to drain. I did use a scalpel to make the incision larger. We were able to express pus and blood from the site and cultures obtained. Patient was having a large deal of pain and did have a moment of nausea. He was observed and on reassessment he reports resolution of the symptoms. He is started on Bactrim and Keflex and educated on wound care. Educated on alarm signs that should prompt reevaluation. Discharged home. Follow-up with PCP. Report back to ER with any new or worsen ing symptoms. Discussed return parameters and answered all questions. Patient conveyed verbal understanding and agreed to the plan. I discussed this case in detail with my attending Dr. Suarez Undiagnosed new problem with uncertain prognosis? @ -No Drug Therapy requiring intensive monitoring for toxicity (Heparin, Nitro, Insulin, Cardizem)? @ -No Were any procedures done? @ -Incision and drainage Diagnosis/symptom? @ -Abscess Acute, or Chronic, or Acute on Chronic? @ -Acute Uncomplicated (without systemic symptoms) or Complicated (systemic symptoms)? @ -Uncomplicated Side effects of treatment? @ -No Exacerbation, Progression, or Severe Exacerbation? @ -No Poses a threat to life or bodily function? How? (Chest pain, [place], [place], pneumonia, PE, COPD, DKA, ARF, appy, cholecystitis, CVA, Diverticulitis, Homicidal, Suicidal, threat to staff... and all critical care pts) @ -No Disposition Clinical Impression: Abscess Disposition: HOME SELF-CARE Condition: Good Instructions (If sedation given, give patient instructions): Abscess (ED), Abscess Incision and Drainage (DC) Additional Instructions: Follow-up with PCP. Report back to ER with any new or worsening symptoms. Take Motrin and Tylenol as needed for pain control. Apply warm compresses for 15 minutes 4-5 times daily. Take medication as prescribed. Prescriptions: Sulfamethox-Tmp 800-160Mg [Bactrim DS 800-160 mg] 1 tab PO Q12HR 7 Days #14 tab Cephalexin [Keflex] 500 mg PO Q6HR 7 Days #28 cap Is patient prescribed a controlled substance at d/c from ED?: No Referrals: Nando Squires DO [Primary Care Provider] - 1-2 days Time of Disposition: 21:30
[2023-05-02] MEDS: SULFAMETHOX-TMP 800-160MG 1 EACH TAB PO STA (21:47)
[2023-05-02] MEDS: CEPHALEXIN 500 MG CAP PO STA (21:47)
[2023-05-02 22:14] VITALS: BP 128/88; PULSE 89
== END 2023-05-02 21:49 | disposition home or self-care (01) ==
LOC: EC 19:19
DX: L02.416 Cutaneous abscess of left lower limb (principal); J45.909 Unspecified asthma, uncomplicated; F17.290 Nicotine dependence, other tobacco product, uncomplicated; F12.90 Cannabis use, unspecified, uncomplicated; Z88.0 Allergy status to penicillin
CPT/HCPCS: 87070; 87205; 10060; 99282; J2001

== ENCOUNTER 2023-09-19 12:37 | Emergency (ER) | payer OTHER ==
--- NOTE | 2023-09-19 13:01 | ED ---
General Adult HPI - General Stated complaint: Fall/Back Pain Time Seen by Provider: 09/19/23 12:56 Source: patient, RN notes reviewed Mode of arrival: ambulatory Limitations: no limitations - History of Present Illness Initial comments: 23-year-old male presents emergency department complaint of fall he had a fall 2 days ago he states he was intoxicated time. He had no head injury. Patient complains of thoracic back pain, right scapular pain. Patient denies any neck, low back pain no extremity injuries. No paresthesias denies any bowel, bladder incontinence retention no saddle anesthesias. - Related Data Previous Rx's Medication Instructions Recorded Docusate [Colace] 100 mg PO DAILY PRN 30 Days #30 09/24/22 capsule Melatonin 6 mg PO HS 30 Days #60 tab 09/24/22 Nicotine 14Mg/24Hr Patch [Habitrol] 1 patch TRANSDERM DAILY 14 Days 09/24/22 #14 patch Ziprasidone [Geodon] 60 mg PO 1730,2100 30 Days #60 cap 09/24/22 hydrOXYzine pamoate [Vistaril] 50 mg PO DAILY PRN 30 Days #60 cap 09/24/22 Cephalexin [Keflex] 500 mg PO Q6HR 7 Days #28 cap 05/02/23 Sulfamethox-Tmp 800-160Mg [Bactrim 1 tab PO Q12HR 7 Days #14 tab 05/02/23 DS 800-160 mg] Allergies Allergy/AdvReac Type Severity Reaction Status Date / Time amoxicillin [From Amoxil] Allergy Rash/Hives Verified 05/02/23 19:25 Review of Systems ROS Statement: Those systems with pertinent positive or pertinent negative responses have been documented in the HPI. ROS Other: All systems not noted in ROS Statement are negative. Past Medical History Past Medical History: Asthma History of Any Multi-Drug Resistant Organisms: None Reported Past Surgical History: No Surgical Hx Reported Past Psychological History: Anxiety, Depression, PTSD Smoking Status: Current every day smoker, Vaper Past Alcohol Use History: None Reported Past Drug Use History: Marijuana General Exam Limitations: no limitations General appearance: alert, in no apparent distress Head exam: Present: atraumatic, normocephalic, normal inspection Eye exam: Present: normal appearance, PERRL, EOMI. Absent: scleral icterus, conjunctival injection, periorbital swelling ENT exam: Present: normal exam, normal oropharynx, mucous membranes moist Neck exam: Present: normal inspection, full ROM. Absent: tenderness, meningi smus, lymphadenopathy Respiratory exam: Present: normal lung sounds bilaterally. Absent: respiratory distress, wheezes, rales, rhonchi, stridor Cardiovascular Exam: Present: regular rate, normal rhythm, normal heart sounds. Absent: systolic murmur, diastolic murmur, rubs, gallop, clicks GI/Abdominal exam: Present: soft, normal bowel sounds. Absent: distended, tenderness, guarding, rebound, rigid Extremities exam: Present: normal inspection, full ROM, normal capillary refill. Absent: tenderness, pedal edema, joint swelling, calf tenderness Back exam: Present: full ROM, tenderness, paraspinal tenderness, vertebral tenderness Neurological exam: Present: alert, reflexes normal. Absent: motor sensory deficit Skin exam: Present: warm, dry, intact, normal color. Absent: rash Course Vital Signs 09/19/23 13:15 Temperature 97.7 F Pulse Rate 78 Respiratory 16 Rate Blood Pressure 124/76 O2 Sat by Pulse 99 Oximetry Medical Decision Making - Medical Decision Making Was pt. sent in by a medical professional or institution (, PA, MANAGEMENT ADVISOR, urgent care, hospital, or detention...) When possible be specific @ -No Did you speak to anyone other than the patient for history (EMS, parent, family, police, friend...)? What history was obtained from this source @ -No Did you review nursing and triage notes (agree or disagree)? Why? @ -I reviewed and agree with nursing and triage notes Were old charts reviewed (outside hosp., previous admission, EMS record, old EKG, old radiological studies, urgent care reports/EKG's, detention records)? Report findings @ -No old charts were reviewed Differential Diagnosis (chest pain, altered mental status, abdominal pain women, abdominal pain men, vaginal bleeding, weakness, fever, dyspnea, syncope, headache, dizziness, GI bleed, back pain, seizure, CVA, palpatations, mental health, musculoskeletal)? @ -Fall, back pain, contusion, fracture EKG interpreted by me (3pts min.). @ -None X-rays interpreted by me (1pt min.). @ -Chest x-ray shows no acute cardiopulmonary process X-ray thoracic spine shows vertebral height loss CT interpreted by me (1pt min.). @ -CT thoracic spine showing T5-6-7 fracture with minimal retropulsion U/S interpreted by me (1pt. min.). @ -None done What testing was considered but not performed or refused? (CT, X-rays, U/S, l abs)? Why? @ -None What meds were considered but not given or refused? Why? @ -None Did you discuss the management of the patient with other professionals (professionals i.e. , PA, MANAGEMENT ADVISOR, lab, RT, psych nurse, medical social consultant, ring stamper, teacher, staff command and control officer, caser in)? Give summary @ -Discussed case with orthopedics who evaluated the report, image patient has no neurological deficits may follow-up in office on Friday. Was smoking cessation discussed for >3mins.? @ -No Was critical care preformed (if so, how long)? @ -No Were there social determinants of health that impacted care today? How? (Homelessness, low income, unemployed, alcoholism, drug addiction, transportation, low edu. Level, literacy, decrease access to med. care, snf, rehab)? @ -No Was there de-escalation of care discussed even if they declined (Discuss DNR or withdrawal of care, Hospice)? DNR status @ -No What co-morbidities impacted this encounter? (DM, HTN, Smoking, COPD, CAD, Cancer, CVA, ARF, Chemo, Hep., AIDS, mental health diagnosis, sleep apnea, morbid obesity)? @ -None Was patient admitted / discharged? Hospital course, mention meds given and route, prescriptions, significant lab abnormalities, going to OR and other pertinent info. @ -discharged patient has compression fracture at 6 and 7 with mild retropulsion is neurologically intact discussed case with orthopedics recommends follow-up, note excessive twisting lifting bending. Patient may be discharged in stable condition with close follow-up. Undiagnosed new problem with uncertain prognosis? @ -No Drug Therapy requiring intensive monitoring for toxicity (Heparin, Nitro, Insulin, Cardizem)? @ -No Were any procedures done? @ -No Diagnosis/symptom? @ -Fall, thoracic compression fracture Acute, or Chronic, or Acute on Chronic? @ -acute Uncomplicated (without systemic symptoms) or Complicated (systemic symptoms)? @ -uncomplicated Side effects of treatment? @ -No Exacerbation, Progression, or Severe Exacerbation? @ -No Poses a threat to life or bodily function? How? (Chest pain, [place], DC, pneumonia, PE, COPD, DKA, ARF, appy, cholecystitis, CVA, Diverticulitis, Homicidal, Suicidal, threat to staff... and all critical care pts) @ -No Disposition Clinical Impression: Thoracic compression fracture Disposition: HOME SELF-CARE Condition: Stable Instructions (If sedation given, give patient instructions): Vertebral Compression Fracture (ED) Additional Instructions: Please return to the Emergency Department if symptoms worsen or any other concerns. Is patient prescribed a controlled substance at d/c from ED?: No Referrals: Nando Squires DO [Primary Care Provider] - 1-2 days Florence Leija DO [Doctor of Osteopathic Medicine] - 1-2 days Time of Disposition: 15:41
[2023-09-19 13:17] VITALS: RESP 16; TEMP 97.7
--- NOTE | 2023-09-19 13:34 | XR ---
EXAMINATION TYPE: XR thoracic spine 2V DATE OF EXAM: 09/19/2023 CLINICAL HISTORY: pain TECHNIQUE: Frontal, lateral, and swimmer's view of thoracic spine are obtained. COMPARISON: None. FINDINGS: Mild loss of height involving the approximate T5 or T6 vertebral segment. Loss of height is of uncertain age and/or etiology of presumed acute in nature given provided history. Remaining thora cic levels appear to be grossly intact. Disc spaces are well preserved. Visualized lungs are clear. IMPRESSION: Mild loss of height involving the approximate T5 or T6 vertebral segment.
--- NOTE | 2023-09-19 13:35 | XR ---
EXAMINATION TYPE: XR chest 1V DATE OF EXAM: 09/19/2023 COMPARISON: NONE HISTORY: Chest pain TECHNIQUE: Single frontal view of the chest is obtained. FINDINGS: There is no focal air space opacity, pleural effusion, or pneumothorax seen. The cardiac silhouette size is within normal limits. The osseous structures are intact. IMPRESSION: 1. No acute process.
--- NOTE | 2023-09-19 15:33 | CT ---
EXAMINATION TYPE: CT thoracic spine wo con DATE OF EXAM: 09/19/2023 COMPARISON: Radiograph same day HISTORY: 23-year-old male fall, abnormal x-ray TECHNIQUE: Contiguous axial scanning of the thoracic spine without IV contrast. Coronal and sagittal reconstructions performed. CT DLP: 484.3 mGycm Automated exposure control for dose reduction was used. FINDINGS: There is superior endplate fracture of T6 resulting in mild anterior wedging, 20% anterior height los s and minimal retropulsion into the ventral spinal canal here. Moderate degenerative disc disease her e at T5-T6. Unclear if this represents a more subacute to chronic injury. Possibly subacute given mil d paravertebral soft tissue swelling in the lack of a well-defined fracture line. Additional band of sclerosis involving the superior endplate of T5 and T7. These are also indetermina te and require further clinical correlation. Remaining vertebral body heights are preserved and alignment is maintained. IMPRESSION: SUPERIOR ENDPLATE FRACTURES OF T5, T6, T7. RESULTANT MILD ANTERIOR WEDGING AT T6 WITH 20% ANTERIOR HE IGHT LOSS AND MILD RETROPULSION INTO THE VENTRAL SPINAL CANAL. THESE ARE AGE INDETERMINATE FRACTURES BUT POSSIBLY SUBACUTE GIVEN SUGGESTION OF SLIGHT PARAVERTEBRAL SOFT TISSUE SWELLING. THE POSSIBILITY OF ACUTE FRACTURES NOT ENTIRELY EXCLUDED. CAREFUL CLINICAL CORRELATION RECOMMENDED.
[2023-09-19] MEDS: ACET/COD 300 MG/30 MG STARTER PACK 6 TAB BTL PO STA (16:01)
[2023-09-19 16:19] VITALS: BP 129/74; PULSE 69
== END 2023-09-19 16:05 | disposition home or self-care (01) ==
LOC: EC 12:37
DX: S22.050A Wedge compression fracture of T5-T6 vertebra, initial encounter for closed fracture (principal); S22.060A Wedge compression fracture of T7-T8 vertebra, initial encounter for closed fracture; F17.290 Nicotine dependence, other tobacco product, uncomplicated; Z88.0 Allergy status to penicillin; W19.XXXA Unspecified fall, initial encounter
CPT/HCPCS: 71045; 72070; 72128; 99284